=== PATIENT | male | born 1965 | race Caucasian/White ===

== ENCOUNTER 2022-11-07 15:13 | Outpatient (OUT) | payer OTHER, SELFPAY ==
[2022-11-09 04:07] LABS: PSA, Free 0.83 ng/mL; Prostate Specific Ag 5.4 ng/mL (0.0-4.0)
== END 2022-11-07 15:14 | disposition home or self-care (01) ==
PROVIDERS: Visit Provider Urology
DX: R97.20 Elevated prostate specific antigen [PSA] (principal)
CPT/HCPCS: 36415; 84153; 84154

== ENCOUNTER 2023-03-04 14:03 | Outpatient (OUT) | payer OTHER, SELFPAY | END 2023-03-04 14:04 | disposition home or self-care (01) | LOC: PST 14:03 | PROVIDERS: Visit Provider Surgery | DX: Z01.818 Encounter for other preprocedural examination (principal); Z86.010 Personal history of colon polyps ==

== ENCOUNTER 2023-03-12 07:45 | Day surgery (SDC) | payer OTHER, SELFPAY ==
--- NOTE | 2023-03-12 | OP_ITS ---
OPERATION DATE: ??03/12/2023 PREOPERATIVE DIAGNOSIS:? Personal history of colon polyps. POSTOPERATIVE DIAGNOSIS:? 3 mm transverse colon polyp, sessile, as well as severe redundancy of the colon and moderate sigmoid diverticulosis. PROCEDURE:? Colonoscopy to cecum with cold forceps polypectomy x1 for transverse colon polyp. SURGEON:? Matteo Hardwick M.D. ANESTHESIA:? Monitored anesthesia care. ESTIMATED BLOOD LOSS:? Less than 1 mL. INDICATIONS AND CONSENT:? Patient is a 57-year-old male personal history of colon polyps.? Last colonoscopy 2015.? Indications, risks, benefits, alternatives of proceeding with colonoscopy were explained extensively to the patient, including the risks of bleeding, colon perforation or anesthetic complications.? All of his questions were answered.? Informed consent was obtained. PROCEDURE:? Patient brought to the operating room, placed in the left lateral decubitus position.? Monitored anesthesia care was provided.? Rectal exam was performed which showed no masses or blood.? The scope was inserted into the anal canal.? Under direct visualization was advanced.? With the aid of abdominal compression, it was advanced to the sigmoid where there was noted to be a sharp bend, as well as moderate sigmoid diverticulosis.? Despite positional changes and compression, the scope was unable to be advanced.? We therefore switched to a pediatric scope.? We were able to get around the sharp bend and continue to the cecum where cecal markings were clearly identified.? There was noted to be a good prep.? Upon withdrawal of the scope, mucosal surfaces were carefully examined.? There were no mass lesions.? In the proximal transverse colon, there was noted to be a 3 mm sessile polyp that was erythematous that was removed with cold biopsy forceps with good hemostasis. There were no other polyps or inflammatory changes.? There was moderate sigmoid diverticulosis with a severely tortuous distal colon.? The scope was retroflexed in the anal canal.? There was no significant hemorrhoidal disease.? Scope was then withdrawn.? Patient tolerated procedure well, was sent to recovery room in good condition.f/u colonoscopy likely in 5 years CC:? Patient?s family physician EARL
[2023-03-12 07:56] VITALS: BP 120/72; PULSE 81; RESP 18; TEMP 36.3; O2SAT 100; BMI 26.3
[2023-03-12] MEDS: LACTATED RINGER'S SOLUTION 1,000 ML 50 ML IV (08:18)
[2023-03-12] MEDS: LACTATED RINGER'S SOLUTION 1,000 ML 1000 ML IV (10:20)
[2023-03-12 10:54] VITALS: BP 108/56; PULSE 83; RESP 16; TEMP 36.2; O2SAT 98
[2023-03-12 11:09] VITALS: BP 109/59; PULSE 78; RESP 14; O2SAT 97
[2023-03-12 11:24] VITALS: BP 91/64; PULSE 77; RESP 18; O2SAT 96
== END 2023-03-12 11:30 | disposition home or self-care (01) ==
PROVIDERS: Visit Provider Surgery
PROC: (CPT 811; principal; 2023-03-12 08:55)
DX: K63.5 Polyp of colon (principal); Z86.010 Personal history of colon polyps; K57.30 Diverticulosis of large intestine without perforation or abscess without bleeding; R97.20 Elevated prostate specific antigen [PSA]; Z87.442 Personal history of urinary calculi; N41.1 Chronic prostatitis; Z90.49 Acquired absence of other specified parts of digestive tract; Z80.0 Family history of malignant neoplasm of digestive organs; E66.3 Overweight; Z68.26 Body mass index [BMI] 26.0-26.9, adult
CPT/HCPCS: 45380; 88305; J2704

== ENCOUNTER 2023-12-29 15:50 | Outpatient (OUT) | payer OTHER, SELFPAY ==
[2023-12-31 04:07] LABS: PSA, Free 0.75 ng/mL; Prostate Specific Ag 3.6 ng/mL (0.0-4.0)
== END 2023-12-29 15:51 | disposition home or self-care (01) ==
LOC: LAB 15:52
PROVIDERS: Visit Provider Urology
DX: R97.20 Elevated prostate specific antigen [PSA] (principal)
CPT/HCPCS: 36415; 84153; 84154

== ENCOUNTER 2025-04-19 10:48 | Outpatient (OUT) | payer OTHER, SELFPAY ==
--- OUTSIDE RECORDS SUMMARY | 2025-04-19 10:53 | XMS_ITS | Clinical Summary ---
Author Organization [facility] Address [address] [facility] [address], [address] [place] [address] Care Team Providers Care White Washer Piler Name Role Phone Bao Abbott MD Primary Care Provider Encounters DateTypeDepartmentCare SzdnSyscqrevvkz21/06/2025 12:32 PM EST - 04/02/2025 11:59 PM ESTHospital Encounter [facility] MRI [address] [place] [address] Elevated PSA Discharge Disposition: Home or Self Care02/16/2025Transcribe Orders [facility] Pre Access [address] [place] [address] Bao Abbott MD Elevated PSA (Primary Dx)from Last 3 Months Social History Tobacco UseTypesPacks/DayYears UsedDateSmoking Tobacco: Never AssessedSex and Gender InformationValueDate RecordedSex Assigned at ZnwfqAnoy20/21/2025 11:46 AM EDTLegal VznRuvl4802/11/2025 7:54 AM EDTGender QllgrssiNmhh03/21/2025 11:46 AM EDT Sexual BiszyfwezlhPjf86/21/2025 11:46 AM EDT Plan of Treatment Health MaintenanceDue DateLast DoneCommentsDepression Qkrfgd6807/29/1977HIV screen 1980Hepatitis C irmufg8307/30/1983DTaP/Tdap/Td vaccine (1 - Tdap)1984 Hepatitis B vaccine (1 of 3 - 19+ 3-dose series)07/29/19841607Krgjel02/06/2006 Sumsoyydctq01/06/2011Colorectal Cancer Tfsdio3307/29/2010FIT/FOBT: Average risk 2010Fecal-DNA (Cologuard): Average risk2010Sigmoidoscopy/CT aejxkbzwoxxw84/06/2011Pneumococcal 50+ years Vaccine (1 of 1 - PCV)07/30/2015 Shingles vaccine (1 of 2)07/30/2015Flu vaccine (#1)5COVID-19 Vaccine ( season)/08/2020, 08/29/2020Hepatitis A vaccineAged OutNo longer eligible based on patient's age to complete this topicHib vaccineAged Out No longer eligible based on patient's age to complete this topicMeningococcal (ACWY) vaccineAged OutNo longer eligible based on patient's age to complete this topicMeningococcal B vaccineAged OutNo longer eligible based on patient's age to complete this topicPolio vaccineAged OutNo longer eligible based on patient's age to complete this topic Procedures Procedure NamePriorityDate/TimeAssociated DiagnosisCommentsMRI PELVIS W WO VVLQLZBHOyqfonu86/06/2025 2:48 PM EST Elevated PSA from Last 3 Months Results * MRI PELVIS W WO CONTRAST (03/31/2025 2:48 PM EST)Anatomical RegionLaterality ModalityAbdomen, Pelvis, HipMagnetic ResonanceSpecimen (Source)Anatomical Location / LateralityCollection Method / VolumeCollection TimeReceived Time 04/01/2025 2:03 PM EST Impressions 04/01/2025 2:07 PM EST 1. Category 5 lesion in the right transition zone. 2. Category 3 lesion in the posterior peripheral zone, right of midline. Electronically signed by True Simeon 04/01/2025 2:07 PM EST MRI PELVIS W WO CONTRAST Clinical history: Elevated PSA, concern for prostate cancer. Comparison: None available. Technique: Multisequence multiplanar MRI of the prostate prior to and after administration of contrast. Findings: Prostate volume: 96.08 cc by bullet volume criteria. In the right transition zone at the level of the base and extending into the left anterior transition zone is a large region of decreased T2 signal which is increased in signal on diffusion weighted imaging and low signal on ADC imaging. this measures 20 x 31 mm, consistent with PI-RADS category 5. In the posterior peripheral zone just slightly right of midline at the level of the apex is a T2 hypointense lesion measuring 5.3 x 8.6 mm. This is slightly increased in signal on diffusion-weighted imaging, though isointense on ADC imaging, this is consistent with PI-RADS category 3. No evidence of lymphadenopathy. No evidence of any extracapsular extension of tumor. Visualized seminal vesicles are unremarkable. Visualized urinary bladder and rectum are unremarkable. Visualized osseous structures are unremarkable. Procedure Note True Mcclellan MD - 04/01/2025 MRI PELVIS W WO CONTRAST Clinical history: Elevated PSA, concern for prostate cancer. Comparison: None available. Technique: Multisequence multiplanar MRI of the prostate prior to andafter administration of contrast. Findings: Prostate volume: 96.08 cc by bullet volume criteria. In the right transition zone at the level of the base and extending intothe left anterior transition zone is a large region of decreased T2 signalwhich is increased in signal on diffusion weighted imaging and low signal on ADCimaging. this measures 20 x 31 mm, consistent with PI-RADS category 5. In the posterior peripheral zone just slightly right of midline at thelevel of the apex is a T2 hypointense lesion measuring 5.3 x 8.6 mm. This isslightly increased in signal on diffusion-weighted imaging, though isointense onADC imaging, this is consistent with PI-RADS category 3. No evidence of lymphadenopathy. No evidence of any extracapsular extensionof tumor. Visualized seminal vesicles are unremarkable. Visualized urinarybladder and rectum are unremarkable. Visualized osseous structures areunremarkable. IMPRESSION: 1. Category 5 lesion in the right transition zone. 2. Category 3 lesion in the posterior peripheral zone, right of midline. Electronically signed by True Mcclellan Authorizing ProviderResult TypeResult StatusPasaul Abbott MDIMG MRI ORDERABLESFinal Result from Last 3 Months Insurance Care Teams Team MemberRelationshipSpecialtyStart DateEnd Date Bao Abbott MD [address] [place] [address] PCP - QnmjnatIqrjdbn83/5/25
--- OUTSIDE RECORDS SUMMARY | 2025-04-19 10:53 | XMS_ITS | Clinical Summary ---
Author Organization [facility] Address [address] [place] [address] Care Team Providers Care Group Contract Analyst Name Role Phone Unavailable Primary Care Provider Unavailabl e Social History Tobacco UseTypesPacks/DayYears UsedDateSmoking Tobacco: Never AssessedSex and Gender InformationValueDate RecordedSex Assigned at BirthNot on fileLegal Sex Male08/07/2022 9:33 PM EDTGender IdentityNot on fileSexual OrientationNot on file Last Filed Vital Signs Vital SignReadingTime TakenCommentsBlood Kvyithow527/70010/27/2018 12:00 PM EDT Pulse--Temperature--Respiratory Rate--Oxygen Saturation--Inhaled Oxygen Concentration--Nxdplw45.9 kg (163 lb)10/27/2018 12:00 PM XURAmamvv956.6 cm (5' 6 )10/27/2018 12:00 PM EDTBody Mass Index26.31010/27/2018 12:00 PM EDT Plan of Treatment Not on file
--- OUTSIDE RECORDS SUMMARY | 2025-04-19 10:53 | XMS_ITS | Clinical Summary ---
Author Organization [facility] Address [address] [place] [address] Care Team Providers Care Handle Rounder Operator Name Role Phone Unavailable Primary Care Provider Unavailabl e Source Comments The following information is NOT included in Care Everywhere downloads:Psychiatric notes, ECG results, Cardiac Rehab notes, Pulmonary Function notes, data from SmartForms (includes but not limited toPregnancy data,audiograms, eye exams, pre-surgical evaluation notes, well-child exam data).[facility] Social History Tobacco UseTypesPacks/DayYears UsedDateSmoking Tobacco: Never AssessedSex and Gender InformationValueDate RecordedSex Assigned at BirthNot on fileLegal Sex Male02/04/2024 12:25 PM EDTGender IdentityNot on fileSexual OrientationNot on file Last Filed Vital Signs Vital SignReadingTime TakenCommentsBlood Ohbhbqyx629/8402/04/2024 12:30 PM EDT Zgzaq637802/04/2024 12:33 PM UFLKjayivvfjna33.6 ??C (97.8 ??F)02/04/2024 12:37 PM EDTRespiratory Gtuq220902/04/2024 12:33 PM EDTOxygen Qiasutoaar90%02/04/2024 12:33 PM EDTInhaled Oxygen Concentration--Weight--Height--Body Mass Index-- Plan of Treatment Health MaintenanceDue DateLast KssiNjwwiwctNcdxtmxtepq17/06/1966Hepatitis C Pdrjabbx95/06/1984Tdap Tjahaob0907/30/1983Hepatitis A (HAV) Vaccine (optional start 19+ years)1984Hepatitis B (HBV) Vaccine (1 of 3 - 19+ 3-dose series) 07/29/19848929Yoamtfrjqqp76/06/2001CRC Fczkoypgd38/06/2011Cologuard (Stool DNA) 2010FIT2010Pneumococcal Vaccine(s) (50+ yrs) (1 of 1 - PCV) 07/30/2015Shingles (RZV) Vaccine (1 of 2)07/30/2015COVID-19 Vaccine (1 - season)2025Influenza Vaccine (#1)2025HIV GrrkEbrgaxyqq49/11/2024 Procedures Procedure NamePriorityDate/TimeAssociated DiagnosisCommentsHIV1 HIV2 AGAB SCRN STAT02/04/2024 12:36 PM EDT from Last 3 Months or Most Recently Relevant to Health Maintenance Results * HIV1 HIV2 AGAB SCRN (02/04/2024 12:36 PM EDT)ComponentValueRef RangeTest MethodAnalysis TimePerformed AtPathologist SignatureHIV Ag-Ab Screen Jrj-JrkuyuttHnv-Jwapbuqh21/11/2024 2:09 PM EDNORTH ALABAMA [facility] PATHOLOGY LABORATORYComment: No laboratory evidence for HIV Infection. Negative result does not rule out acute HIV infection. Ifacute HIV infection is suspected, recommend ordering an HIV-1 RNA quanitification test.Specimen (Source)Anatomical Location / LateralityCollection Method / VolumeCollection TimeReceived TimeBloodBLOOD SPECIMEN / UnknownVenipuncture / Sojfswu1502/04/2024 12:36 PM EDT02/04/2024 12:52 PM EDT Narrative [facility] - 02/04/2024 2:09 PM EDT HIV Information: ??[place] Rev. code 3701.243(E): This information has been disclosed to you from confidential records protected from disclosure by state law. ??You shall make no further disclosure of this information without the specific, written, and informed release of the individual to whom it pertains, or as otherwise permitted by state law. ??A general authorization for the release of medical or other information is not sufficient for the purpose of the release of HIV test results or diagnoses. Authorizing ProviderResult TypeResult StatusDaisabel ROLDAN HIV/HEP/SYPH TESTINGFinal ResultPerforming OrganizationAddressCity/State/ZIP CodePhone Number [facility] [address] [place] [phone] from Last 3 Months or Most Recently Relevant to Health Maintenance Insurance
--- NOTE | 2025-04-19 10:56 | XR_ITS ---
[place] [id number] Patient Name: ERIN JACOBO MRN: [id number] date: 1965 Sex: M [facility]igned [facility] Current Patient Location: [facility] Accession/Order Number: [id number] Exam Date: 04/19/2025 11:40 Report Date: 04/19/2025 11:56 At the request of: PEDRO BARBOUR MD Procedure: XR chest 2V PA AND LATERAL CHEST: CLINICAL HISTORY: Preoperative clearance COMPARISON: None There is minor basilar atelectasis and/or scarring. There is no focal parenchymal consolidation, effusion or pneumothorax. The cardiac, hilar and mediastinal silhouettes are within normal limits. There is no vascular congestion. The visualized bony thorax is intact. XR/XR chest 2V IMPRESSION: NO ACUTE CARDIOPULMONARY ABNORMALITY. Impression dictated by: Myriam Dominguez M.D. 04/19/2025 11:56 AM Dictation Location: [place] [address] Electronically authenticated by: [id number] Y Date: 04/19/2025 11:56
--- NOTE | 2025-04-19 10:56 | ECG_ITS ---
[facility] Test Date: 2025-04-19 Pat Name: ERIN JACOBO Department: Room: - Gender: Male Business Specialist: : 1965 Requested By: Order Number: [id number] Reading MD: AUDREY UNDERWOOD Measurements Intervals [place] Rate: 60 P: 62 ND: 177 QRS: -7 QRSD: 93 T: 44 QT: 389 QTc: 392 Interpretive Statements SINUS RHYTHM No previous ECG available for comparison Electronically Signed On 04-19-2025 15:19:58 EST by AUDREY UNDERWOOD
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
--- NOTE | 2025-04-19 11:31 | PM.PRESUREVA ---
History of Present Illness History of Present Illness Chief complaint: Elevated PSA, Prostate Lesions on MRI Narrative: Patient presents for presurgical testing. The patient reports a history of elevated PSA and a prior prostate biopsy, he states he is PSA recently increased. He states he does have nocturia but otherwise denies any urinary complaints. He states he does not have dysuria, hematuria, urinary retention, abdominal pain, nausea, vomiting, fever, or any other complaints. Review of Systems ROS Narrative REVIEW OF SYSTEMS: Negative except as stated in HPI, ten or more systems reviewed. Constitutional: No fever, chills, weakness ENT: No sore throat or epistaxis Cardiovascular: No edema, chest pain, palpitations, or activity intolerance Respiratory: No shortness of breath, cough, or wheezing Musculoskeletal: No joint pain or swelling Gastrointestinal: No abdominal pain, constipation, diarrhea, or vomiting Genitourinary: No dysuria or hematuria Neurological: No numbness, tingling, weakness, or headache Psychiatric: No mood changes PFSH PFSH Medical History (Updated 04/19/25 @ 11:17 by Carmelita Blue NP) Lung nodule ?R91.1 - Solitary pulmonary nodule (ICD-10) Snores ?R06.83 - Snoring (ICD-10) Polyp of colon ?K63.5 - Polyp of colon (ICD-10) BPH (benign prostatic hyperplasia) ?N40.0 - Benign prostatic hyperplasia without lower urinary tract symptoms (ICD-10) Lesion of prostate ?N42.9 - Disorder of prostate, unspecified (ICD-10) Abnormal TRUS (transrectal ultrasound), prostate ?R93.89 - Abnormal findings on diagnostic imaging of other specified body structures (ICD-10) Overweight ?E66.3 - Overweight (ICD-10) History of kidney stones ?Z87.442 - Personal history of urinary calculi (ICD-10) Elevated PSA ?R97.20 - Elevated prostate specific antigen [PSA] (ICD-10) BMI 26.0-26.9,adult ?Z68.26 - Body mass index [BMI] 26.0-26.9, adult (ICD-10) Chronic prostatitis ?N41.1 - Chronic prostatitis (ICD-10) Surgical History (Updated 04/19/25 @ 11:04 by Carmelita Blue NP) H/O prostate biopsy ?Z98.890 - Other specified postprocedural states (ICD-10) H/O colonoscopy (03/12/23) ?Z98.890 - Other specified postprocedural states (ICD-10) History of tonsillectomy ?Z90.89 - Acquired absence of other organs (ICD-10) H/O lithotripsy ?Z98.890 - Other specified postprocedural states (ICD-10) H/O colonoscopy ?Z98.890 - Other specified postprocedural states (ICD-10) Hx of sinus surgery ?Z98.890 - Other specified postprocedural states (ICD-10) History of cholecystectomy ?Z90.49 - Acquired absence of other specified parts of digestive tract (ICD-10) Family History (Updated 04/19/25 @ 11:17 by Carmelita Blue NP) Father Hyperlipemia Kidney stones Hypertension Mother Family history of stroke Heart disease Hyperlipemia Kidney stones Family history of hypertension Sister Blood clotting disorder Other Family history of cancer Social History (Updated 04/19/25 @ 11:13 by Carmelita Blue NP) Within the past year, how often did you have a drink containing alcohol: monthly or less Within the past year, how many standard drinks containing alcohol did you have on a typical day: 1 or 2 Within the past year, how often did you have six or more drinks on one occasion: never Total score: 0 Score interpretation: A score less than 4 is consistent with normal alcohol consumption. Smoking status: Never smoker Non-prescribed substance use: denies use Previous occupational history: [employer], Dock [employer] Highest level of school completed/degree received: high school graduate Meds Home Medications and Allergies Home Medications ?Medication ?Instructions ?Recorded ?Confirmed ?Type No Known Home Medications 04/19/25 04/19/25 History Allergies Allergy/AdvReac Type Severity Reaction Status Date / Time Iodinated Contrast Media AdvReac Severe Anaphylaxis Verified 04/19/25 11:09 Exam Narrative Exam Narrative: Constitutional: Awake, alert, comfortable, well-appearing, nontoxic, interactive, vital signs as charted Head: Normocephalic, atraumatic Neck: Supple, normal appearance, normal range of motion, no meningeal signs, no lymphadenopathy Respiratory: No respiratory distress, breath sounds clear Cardiovascular: Regular rate and rhythm, strong and regular heart tones Abdomen: Nontender, normal bowel sounds, soft, no CVA tenderness Musculoskeletal: Normal gait, no swelling or edema Skin: No rashes or induration, no lesions, only visible skin inspected Neuro: No neurological deficits, normal sensation Psychiatric: Oriented ?3, normal affect Assessment and Plan Assessment and Plan (1) Elevated PSA: (2) Lesion of prostate: (3) BPH (benign prostatic hyperplasia): Plan Transperineal MRI prostate fusion biopsy scheduled with Dr. Abbott April 26, 2025.
[2025-04-19 11:50] LABS: Anion Gap 11.6; Blood Urea Nitrogen 14.0 mg/dL (7.0-18.0); Calcium 8.8 mg/dL (8.5-10.1); Carbon Dioxide 27.3 mmol/L (21.0-32.0); Chloride 104 mmol/L (98-107); Estimated GFR (African America >60 (>=60 mL/min/1.73m^2); Estimated GFR (Non-African Ame >60 (>=60 mL/min/1.73m^2); Glucose 90 mg/dL (74-106); Potassium 3.9 mmol/L (3.5-5.1); Sodium 139 mmol/L (136-145)
[2025-04-19 12:02] LABS: INR 1.08; Prothrombin Time 11.4 sec (9.0-11.6)
[2025-04-19 12:21] LABS: Hematocrit 45.0 % (42.0-54.0); Hemoglobin 16.0 g/dL (14.0-18.0); Immature Granulocytes Abs Auto 0.06 10^3/uL (0.00-0.03); Immature Granulocytes Pct Auto 1.0 % (0.0-0.5); Lymphocytes Absolute Auto 1.1 10^3/uL (1.2-3.8); Mean Corpuscular HGB Conc 35.6 g/dL (29.9-35.2); Mean Corpuscular Hemoglobin 32.7 pg (25.9-34.0); Mean Corpuscular Volume 92.0 fL (80.0-94.0); Platelet Count 236 10^3/uL (150-450); Red Blood Count 4.89 10^6/uL (4.70-6.10); White Blood Count 6.1 10^3/uL (4.0-11.0)
[2025-04-19 12:56] LABS: Partial Thromboplastin Time 53.0 sec (22.3-36.2)
== END 2025-04-19 10:49 | disposition home or self-care (01) ==
PROVIDERS: Visit Provider Urology
DX: Z01.810 Encounter for preprocedural cardiovascular examination (principal); Z01.812 Encounter for preprocedural laboratory examination; Z01.818 Encounter for other preprocedural examination; R97.20 Elevated prostate specific antigen [PSA]
CPT/HCPCS: 36415; 71046; 80048; 85025; 85610; 85730; 93005; G0463

== ENCOUNTER 2025-04-26 07:03 | Day surgery (SDC) | payer OTHER, SELFPAY ==
[2025-04-19 11:27] VITALS: BP 121/75; PULSE 65; TEMP 36.2; O2SAT 97; BMI 27.3
[2025-04-26] VITALS (12 sets, daily range): BP systolic 93–127; BP diastolic 56–94; PULSE 62–83; TEMP 36.1–36.3; O2SAT 95–99; BMI 27.1
--- OUTSIDE RECORDS SUMMARY | 2025-04-26 07:07 | XMS_ITS | Clinical Summary ---
Author Organization [facility] Address [address] [place] [address] Care Team Providers Care Cat Driver Name Role Phone Unavailable Primary Care Provider Unavailabl e Social History Tobacco UseTypesPacks/DayYears UsedDateSmoking Tobacco: Never AssessedSex and Gender InformationValueDate RecordedSex Assigned at BirthNot on fileLegal Sex Male08/07/2022 9:33 PM EDTGender IdentityNot on fileSexual OrientationNot on file Last Filed Vital Signs Vital SignReadingTime TakenCommentsBlood Gphyagwb982/70010/27/2018 12:00 PM EDT Pulse--Temperature--Respiratory Rate--Oxygen Saturation--Inhaled Oxygen Concentration--Mhnmqx20.9 kg (163 lb)10/27/2018 12:00 PM YPUKmcset035.6 cm (5' 6 )10/27/2018 12:00 PM EDTBody Mass Index26.31010/27/2018 12:00 PM EDT Plan of Treatment Not on file
--- OUTSIDE RECORDS SUMMARY | 2025-04-26 07:07 | XMS_ITS | Clinical Summary ---
Author Organization [facility] 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 Role Phone Bao Abbott MD Primary Care Provider Encounters DateTypeDepartmentCare SvdrZddgexsrxvw45/06/2025 12:32 PM EST - 04/02/2025 11:59 PM ESTHospital Encounter [facility] [address] [place] [address] Elevated PSA Discharge Disposition: Home or Self Care02/16/2025Transcribe Orders [facility] [facility] [address] [place] [address] Bao Abbott MD Elevated PSA (Primary Dx)from Last 3 Months Social History Tobacco UseTypesPacks/DayYears UsedDateSmoking Tobacco: Never AssessedSex and Gender InformationValueDate RecordedSex Assigned at PywvaDahl99/21/2025 11:46 AM EDTLegal GboAhwv9402/11/2025 7:54 AM EDTGender FxfkvkemUrvq34/21/2025 11:46 AM EDT Sexual QnxzmpmqtwmKuk91/21/2025 11:46 AM EDT Plan of Treatment Health MaintenanceDue DateLast DoneCommentsDepression Lrksvl7607/29/1977HIV screen 1980Hepatitis C mtikkf0707/30/1983DTaP/Tdap/Td vaccine (1 - Tdap)1984 Hepatitis B vaccine (1 of 3 - 19+ 3-dose series)07/29/19843073[place]68/06/2006 Pfrxlvrsgiw40/06/2011Colorectal Cancer Pqnoyj6407/29/2010FIT/FOBT: Average risk 2010Fecal-DNA (Cologuard): Average risk2010Sigmoidoscopy/CT wsaspycwgbza34/06/2011Pneumococcal 50+ years Vaccine (1 of 1 - [...] Procedures Procedure NamePriorityDate/TimeAssociated DiagnosisCommentsMRI PELVIS W WO WHHFFQSZTxhgsvv56/06/2025 2:48 PM EST Elevated PSA from Last [...] DateEnd Date Bao Abbott MD [address] [place] [address] PCP - OipkrgaOwxnnio46/5/25
--- OUTSIDE RECORDS SUMMARY | 2025-04-26 07:07 | XMS_ITS | Clinical Summary ---
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 Role Phone Unavailable Primary Care Provider Unavailabl e Source Comments The following information is NOT included in Care Everywhere downloads:Psychiatric notes, ECG results, Cardiac Rehab notes, Pulmonary Function notes, data from SmartForms (includes but not limited toPregnancy data,audiograms, eye exams, pre-surgical evaluation notes, well-child exam data).[facility] Social History Tobacco UseTypesPacks/DayYears UsedDateSmoking Tobacco: Never AssessedSex and Gender InformationValueDate RecordedSex Assigned at BirthNot on fileLegal Sex Male02/04/2024 12:25 PM EDTGender IdentityNot on fileSexual OrientationNot on file Last Filed Vital Signs Vital SignReadingTime TakenCommentsBlood Smqjarhu586/8402/04/2024 12:30 PM EDT Zlrex679802/04/2024 12:33 PM LTDYhjidlzlfcm45.6 ??C (97.8 ??F)02/04/2024 12:37 PM EDTRespiratory Cnjd381502/04/2024 12:33 PM EDTOxygen Fqojjnimjj83%02/04/2024 12:33 PM EDTInhaled Oxygen Concentration--Weight--Height--Body Mass Index-- Plan of Treatment Health MaintenanceDue DateLast UkjaRsvvegyaTdwwvraqvjs42/06/1966Hepatitis C Kpmmpwwr50/06/1984Tdap Jpkiulx4007/30/1983Hepatitis A (HAV) Vaccine (optional start 19+ years)1984Hepatitis B (HBV) Vaccine (1 of 3 - 19+ 3-dose series) 07/29/19849742Eicfyjudepp36/06/2001CRC Umnlhnvls85/06/2011Cologuard (Stool DNA) 2010FIT2010Pneumococcal Vaccine(s) (50+ yrs) (1 of 1 - PCV) 07/30/2015Shingles (RZV) Vaccine (1 of 2)07/30/2015COVID-19 Vaccine (1 - season)2025Influenza Vaccine (#1)2025HIV LytuFcvqycwia26/11/2024 Procedures Procedure NamePriorityDate/TimeAssociated DiagnosisCommentsHIV1 HIV2 AGAB SCRN STAT02/04/2024 12:36 PM EDT from Last 3 Months or Most Recently Relevant to Health Maintenance Results * HIV1 HIV2 AGAB SCRN (02/04/2024 12:36 PM EDT)ComponentValueRef RangeTest MethodAnalysis TimePerformed AtPathologist SignatureHIV Ag-Ab Screen Zuc-TnfgpccrInu-Aturfmcn55/11/2024 2:09 PM EDLA[facility] LABORATORYComment: No laboratory evidence for HIV Infection. Negative result does not rule out acute HIV infection. Ifacute HIV infection is suspected, recommend ordering an HIV-1 RNA quanitification test.Specimen (Source)Anatomical Location / LateralityCollection Method / VolumeCollection TimeReceived TimeBloodBLOOD SPECIMEN / UnknownVenipuncture / Aaejryb4502/04/2024 12:36 PM EDT02/04/2024 12:52 PM EDT Narrative [facility] - 02/04/2024 2:09 PM EDT HIV Information: ??[place] Rev. code 3701.243(E): This information has been [...] ROLDAN HIV/HEP/SYPH TESTINGFinal ResultPerforming OrganizationAddressCity/State/ZIP CodePhone Number [facility] [address] [place] [phone] from Last 3 Months or Most Recently Relevant to Health Maintenance Insurance
[2025-04-26] MEDS: CEFAZOLIN SODIUM 1 GM/50 ML D5W PREMIX IV (07:39)
[2025-04-26] MEDS: GENTAMICIN SULFATE 120 MG in 0.9 % SODIUM CHLORIDE 100 ML 206 MG IV (08:11)
[2025-04-26] MEDS: LIDOCAINE 2% JELLY 10 ML UR (08:30)
[2025-04-26] MEDS: LIDOCAINE HCL 1% 100 MG/10 ML MDV INJ (08:31)
--- NOTE | 2025-04-26 09:29 | PM.URSON ---
Urology Surgery Operative Note Operative Note Procedure Date: 04/26/25 Time Out Performed: yes Pre-op Diagnosis: Elevated PSA and prostate lesions by MRI Post-op Diagnosis: same as pre-op Procedures performed: 1. Transperineal prostate MRI fusion biopsies Anesthesia: local and General-LMA Primary Surgeon: Bao Abbott Complications: None Estimated blood loss (mL): 15 Findings: 2, hypoechoic areas. Specimens: 1. 8 biopsies from the first area of interest. 2. 10 biopsies from the second area of interest sent separately. 3. Mapped out biopsies from the anterior medial and lateral, posterior medial and lateral and base on each side in the usual standard fashion Indications for Procedures: This gentleman has a history of elevated PSA for which he has had a negative biopsy in the past. Recent rising PSA and MRI revealed 2 areas of concern with PI-RADS 4 ratings. He now presents for transperineal fusion biopsies and mapped out biopsies. He has signed an informed consent after risks were explained. Some of these risks include bleeding, infection, urosepsis, anesthesia to name a few. Detailed description of Procedure: The patient was brought into the operating room and kept on the operating room table in the supine position. SCDs were placed on his lower extremities and turned on and functioning during the entire case. Timeout was done by all parties in the room. We all agreed upon the patient's identification and the planned procedures for this patient. General anesthesia was then administered via LMA. He was then repositioned into the modified dorsal lithotomy position. All pressure points were satisfactorily padded. Perineum was sterilely prepped and draped in the usual fashion. Scrotum was taped cephalad. I then started with 1% plain lidocaine and infiltrated the skin in the areas of predicted puncture sites. The UroNav ultrasound probe was then passed per rectum. The precision point device was then placed on the ultrasound probe. The right and left puncture sites were then determined and marked. We started on the patient's right side with the first lesion. We then used the biopsy gun through the precision point device and took 8 dedicated biopsies from this first lesion. These were sent separately labeled region of interest #1. We then similarly lined up the second area of interest and we took 10 different biopsies from this area. These biopsies were sent separately labeled area of interest #2. We then began doing the standard mapped out biopsies. We started posteriorly and covered the posterior medial and posterior lateral and the base. We then did the anterior medial and anterior lateral. Biopsies were taken from each of the sites and sent separately. A complement of biopsies from the sites was taken from the right and then from the left. Upon review of our biopsies through the gland, we had excellent coverage both of the areas of interest and the mapped out regions. The ultrasound probe and precision point were then removed. The patient was then transferred to a [facility] bed and wheeled to PACU in stable condition.
--- NOTE | 2025-04-26 10:25 | PC.NURSE ---
1024: patient states he feels dizzy. denies any pain at this time.
== END 2025-04-26 11:05 | disposition home or self-care (01) ==
PROVIDERS: Visit Provider Urology
PROC: (CPT 902; principal; 2025-04-26 08:00)
DX: R97.20 Elevated prostate specific antigen [PSA] (principal); N42.9 Disorder of prostate, unspecified; N40.0 Benign prostatic hyperplasia without lower urinary tract symptoms; Z90.49 Acquired absence of other specified parts of digestive tract; Z87.442 Personal history of urinary calculi
CPT/HCPCS: 55700; 36415; J0131; J0690; J1100; J1580; J1885; J2250; J2371; J2405; J2704